=== PATIENT | female | born 1955 | race Caucasian/White ===

== ENCOUNTER 2016-05-26 13:15 | Emergency (ER) | payer MEDICARE ==
[~2016-05-26 13:15] MED LIST: ADVAIR INH; ATEN25TA7 PO; CEPH-512 PO; ESTR0.5T4 PO; FLUT16SP; LSNP5T1 PO; METH750T PO; OXYC-176 PO; OXYC1TAB24 PO; PROG100C PO; VENTOLIN 90 MCG INH; ZOF8 PO
[2016-05-26 13:21] VITALS: BP 180/95; PULSE 78; RESP 20; O2SAT 99
--- NOTE | 2016-05-26 13:58 | ED.REPORT ---
HPI-Chest Pain 40 and Over Date of Service May 26, 2016 ED Provider: Sushant Pereira MD Jaci is a 61-year-old female with a chief complaint of chest pressure. She reports she was history of intermittent chest pressure and palpitations. She states that these episodes make her feel "fainty" and that she feels like she is about to pass out. Denies having passed out. She also reports shortness of breath, cough, weakness and rhinorrhea. Denies chest pain, wheezing, abdominal pain. She states she has never had symptoms like this before but admits she was worked up for "palpitations" approximately 15 years ago in [place]. She states that she was told she has an arrhythmia but that she did not require treatment. Admits history of asthma, smoking, hypertension, DM.. Denies history of PE, hospitalization, cancer, trauma, blood clots, leg swelling. Nursing Notes Stated Complaint: CHEST PAIN Chief Complaint: Chest Pain Nursing Notes Reviewed: Yes Allergies: Coded Allergies: Sulfa (Sulfonamide Antibiotics) (Verified Allergy, Unknown, Unknown, ) Scheduled ([Advair Diskus 100/50]) 1 PUFF INH BID Albuterol HFA (Proair HFA) 8.5 Gm Hfa.aer.ad 2 PUFFS INHALATION Q4H Atenolol-Expunged Drug, Do Not Renew! (Atenolol-Expunged Drug, Do Not Renew!) 25 Mg Tablet 25 MG PO DAILY Cephalexin (Keflex) 500 Mg Capsule 500 MG PO TID Estradiol-Expunged Drug, Do Not Renew! (Estrace-Expunged Drug, Do Not Renew!) 0.5 Mg Tablet 0.5 MG PO DAILY Fluticasone-Expunged Drug, Do Not Renew! (Flonase-Expunged Drug, Do Not Renew!) 120 Sprays Aero 1 SPRAY NA BID each nostril Lisinopril-Expunged Drug, Do Not Renew! (Lisinopril-Expunged Drug, Do Not Renew! ) 5 Mg Tablet 5 MG PO DAILY Magnesium Chloride (Slow-Mag) 64 Mg Tablet 128 MG PO BID Methocarbamol-Expunged Drug, Do Not Renew! ([id number]-Zyeamysc Drug, Do Not Renew!) 750 Mg Tablet 750 MG PO Q8 Progesterone,Micron-Expunged Drug, Do Not Jimmy (Prometrium-Expunged Drug, Do Not Renew!) 100 Mg Capsule 400 MG PO DAILY Scheduled PRN ([Ventolin HFA 90 mcg]) 2 PUFFS INH Q4-6H PRN PRN Ondansetron (Zofran) 8 Mg Tablet 0.5-1 TABLET PO Q4H PRN PRN For Nausea Oxycodone/APAP-Expunged Drug, Do Not Renew! (Percocet 5/325-Expunged Drug, Do Not Renew!) 1 Each Tablet 1 TAB PO Q6 PRN PRN * 1/2 tab to 1 tab oxyCODONE-Acetaminophen 5-325 mg (oxyCODONE-Acetaminophen 5-325 mg) 1 Each Tablet 1 TAB PO Q6H PRN PRN For Pain General Time Seen by MD: 13:49 Chief Complaint Chest pressure Sudden in Onset?: No Past Medical History Past Medical History Kidney stones Reports: Asthma, Diabetes mellitus, Hypertension Past Surgical History back surgery Smoking History Never Smoker Social History Alcohol Use: Denies alcohol use Drug Use: Denies drug use Occupation lives with boyfriend, no work or school Review of Systems General: Denies fever, chills, malaise. HEENT: Denies congestion, headache, sore throat. Respiratory: Admits cough, shortness of breath, denies dyspnea, wheezing Cardiovascular: Denies chest pain, admits palpitations. Gastrointestinal: Denies vomiting, diarrhea, abdominal pain. Genitourinary: Denies frequency, urgency, dysuria, hematuria. Otherwise as noted in HPI. Physical Exam General: Well appearing, well developed, obese, no acute distress. Head: Atraumatic, normocephalic. Eyes: No scleral icterus or injection. No discharge. Vision grossly intact. ENT: Voice clear, hearing grossly intact. Respiratory: Regular rate and rhythm. Breath sounds present, clear to auscultation and equal bilaterally. Cardiovascular: Regular rate and rhythm, without murmur, gallop or rub. No pedal edema. Gastrointestinal: Obese abdomen non-tender without guarding or rebound. Bowel sounds normoactive. Skin: Warm and dry. Legs: Calves nontender, equal bilaterally, no pitting edema, negative Homans sign Neurological: Grossly nonfocal. Psychological: Alert and oriented. Speech appropriate, linear and logical. Behavior appropriate. Initial Vital Signs Vital Signs (First) Date Time Temp Pulse Resp B/P Pulse Ox O2 Delivery O2 Flow Rate FiO2 05/26/16 13:21 36.6 78 20 180/95 99 Room Air Initial VS: Reviewed, Vital signs abnormal (moderately elevated blood pressure) Interpretation & Diagnostics Interpretation & Diagnostics: D-dimer negative, Troponin negative Lab Results Interpretation Result Diagram: 05/26/16 1403 05/26/16 1403 Test 05/26/16 14:03 05/26/16 14:21 White Blood Count 5.9th/mm3 (3.8-10.1) Red Blood Count 4.46mil/mm3 (3.90-5.20) Hemoglobin 13.2g/dL (12.0-15.6) Hematocrit 39.5% (35.0-46.0) Mean Corpuscular Volume 88.6fL (81-100) Mean Corpuscular Hemoglobin 29.6pg (27.0-35.0) Mean Corpuscular Hemoglobin Concent 33.4% (32.0-37.0) Red Cell Distribution Width 13.7% (12.3-15.4) Platelet Count 247bil/L (150-400) Neutrophils (%) (Auto) 65.4% (40-74) Lymphocytes (%) (Auto) 23.1% (14-46) Monocytes (%) (Auto) 8.9% (4-12) Eosinophils (%) (Auto) 1.3% (0-5) Basophils (%) (Auto) 0.5% (0-3) D-Dimer < 0.5mg/L (<0.50) Sodium Level 138mEq/L (134-144) Potassium Level 4.0mEq/L (3.5-5.2) Chloride Level 96mEq/L (97-108) Carbon Dioxide Level 24mmol/L (18-29) Blood Urea Nitrogen 17mg/dL (8-27) Creatinine 1.03mg/dL (0.57-1.00) Estimat Glomerular Filtration Rate 78mL/min (>59) Glucose Level 175mg/dL (60-99) Calcium Level 9.9mg/dL (8.5-10.1) Magnesium Level 1.4mg/dL (1.6-2.6) Total Bilirubin 0.2mg/dL (0.0-1.2) Aspartate Amino Transf (AST/SGOT) 21U/L (0-50) Alanine Aminotransferase (ALT/SGPT) 14U/L (0-32) Alkaline Phosphatase 70U/L (25-165) Troponin T < 0.010ug/L (0.0-0.011) Total Protein 7.6g/dL (6.4-8.4) Albumin 4.2g/dL (3.4-5.0) Hold Huitron Top Tube Received (Received) ECG Interpretation Time: 14:17 Interpreted by: ED physician Normal ECG Interpretation: Normal rate, Normal sinus rhythm, No acute ischemic changes, Normal QRS, Normal axis, Normal intervals, Adequate tracing Rhythm / Conduction: RBBB - complete X-Ray Chest Interpretation Chest Xray Interpretation: PROCEDURE: X-RAY CHEST ONE VIEW, PORTABLE ([id number]) INDICATIONS: CHEST PAIN IMPRESSION: No acute cardiopulmonary disease. Re-Eval/Medical Decision Med Decision/Clinical Course Refused nitroglycerin Wells criteria for PE is low risk. I discussed this case with Dr. pereira 61-year-old female presents with chief complaint of chest pressure which she describes as intermittent and associated with palpitations. She states that those make her feel faint, though she denies losing consciousness. She has a history of palpitations. Admits a history of asthma smoking hypertension and diabetes. Patient refused nitroglycerin because she does not want a headache. I explained to the benefits of nitroglycerin and she maintained her refusal. EKG and troponin are reassuring that this is unlikely to be a cardiac event. Chest x-ray is reassuring regarding pneumonia or pneumothorax. Wells criteria for PE is low risk and d-dimer negative. Physical exam is reassuring. I notice no arrhythmia on the monitor. CBC is within acceptable limits and CMP reveals slightly low magnesium. While I cannot say with any certainty what is causing her episodes of chest pressure and presyncope, this is high suspicious for cardiac arrhythmia. I prescribed one week of magnesium supplements and primary care follow-up to further assess. Provided return precautions. Patient agrees with the plan and is ready for discharge. Discharge & Departure Primary Impression: Intermittent palpitations Disposition: Home Discharge Condition All VS Reviewed: Yes Condition: Stable Patient Instructions: Palpitations (ED) Additional Instructions: Evaluation for chest pressure in the emergency department. His good exam and tests performed emergency department are reassuring that this is a heart attack , or problem with your lungs. We did notice that the magnesium levels and your blood are a little bit low. This could be causing a heart arrhythmia which could be causing your symptoms. I prescribed 7 days of magnesium supplementation. Unfortunately this will likely cause some stomach upset and diarrhea. I also refilled her albuterol inhaler as requested, because you were out. Please follow-up with your primary care provider as planned. Return to emergency department for any new or worsening symptoms including increasing chest pain, severe heartburn, weakness, loss of consciousness or difficulty breathing. Referrals: Radha Gallardo MD (PCP) EDSupervising Provider for [facility]: Sushant Pereira MD Attending Statement Attending attestation: I saw this patient in conjunction with Ronak Saucedo PA-C. Patient was discussed in detail and I agree with the workup, evaluation, treatment and disposition. Sushant Pereira MD copies to: Radha Gallardo MD, Beck O MD May 26, 2016 13:58 Ronak Saucedo PA-C May 26, 2016 14:31
[2016-05-26 14:12] LABS: BASOPHILS % (AUTO) 0.5 % (0-3); EOSINOPHILS % (AUTO) 1.3 % (0-5); MONOCYTES % (AUTO) 8.9 % (4-12); Mean Corpuscular Hemoglobin 29.6 pg (27.0-35.0); Mean Corpuscular Volume 88.6 fL (81-100); NEUTROPHILS % (AUTO) 65.4 % (40-74); Platelet Count 247 bil/L (150-400)
[2016-05-26 14:44] LABS: TROPONIN T < 0.010 ug/L (0.0-0.011)
[2016-05-26 14:50] LABS: Magnesium 1.4 mg/dL (1.6-2.6)
--- NOTE | 2016-05-26 14:53 | DRSVH ---
PROCEDURE: X-RAY CHEST ONE VIEW, PORTABLE ([id number]) INDICATIONS: CHEST PAIN TECHNIQUE: One view of the chest was acquired. COMPARISON: None. FINDINGS: Surgical changes and devices: None. Lungs and pleura: No pleural effusions or pneumothorax. Lungs are clear. Mediastinum: Mediastinal contours appear normal. Heart size is normal. Bones and chest wall: No suspicious bony lesions. Overlying soft tissues appear unremarkable. IMPRESSION: No acute cardiopulmonary disease. Dictated by: Silverio Bacon [facility] Interpreted: Marleni Marvin MD on 05/26/2016 at 14:52 Transcribed by: LANCE on 05/26/2016 at 14:52 Approved by: Marleni Marvin MD, PhD on 05/26/2016 at 17:01
[2016-05-26] MEDS ORDERED: SLO64 PO (15:26)
[2016-05-26] MEDS ORDERED: ALBU8.5H2 INHALATION (15:26)
[2016-05-26 15:43] VITALS: BP 167/79; PULSE 72; RESP 19; O2SAT 99
== END 2016-05-26 15:47 | disposition home or self-care (01) ==
LOC: SED 13:15
DX: R00.2 Palpitations (principal); R06.02 Shortness of breath; R53.1 Weakness; R05 Cough; J34.89 Other specified disorders of nose and nasal sinuses; I10 Essential (primary) hypertension; J45.909 Unspecified asthma, uncomplicated; E11.9 Type 2 diabetes mellitus without complications; Z87.891 Personal history of nicotine dependence; Z88.2 Allergy status to sulfonamides